=== PATIENT | female | born 1930 | race African-American/Black ===

== ENCOUNTER 2017-04-08 19:49 | Inpatient (IN) | payer MEDICARE ==
[~2017-04-08] VITALS: Ht 165.1 cm; Wt 78.0 kg
[~2017-04-08 19:49] MED LIST: AMIO200T PO; AMLO10TA4 PO; BRIM15DR2 EACHEYE; DILT180C54 PO; FOLI-43 PO; FOLI-68 PO; FURO80TA3 PO; GABA300S PO; HYDR-3162 PO; HYDR-3927 PO; HYDR-4135 PO; LATA2.5D2 EACHEYE; NPH,100V SQ; ONDA4TAB51 PO; PANT40TA4 PO; POLY17PO3 PO; POTA20TA82 PO; PRAV40TA58 PO; SERT25TA74 PO; ZOLP5TAB2 PO
[2017-04-08] MEDS ORDERED: ONDANSETRON HCL 4MG/2ML VIAL IV STA (21:50)
[2017-04-08] MEDS ORDERED: SODIUM CHLORIDE 0.9% 1,000 ML IV ONE (21:50)
[2017-04-08] MEDS ORDERED: ACETAMINOPHEN 325MG TABLET PO STA (21:50)
[2017-04-08] MEDS ORDERED: PIPERACILLIN/TAZ 3.375G PREMIX 50 ML IV ONE (22:00)
[2017-04-08] MEDS ORDERED: VANCOMYCIN 1 G PREMIX 200 ML IV ONE (22:00)
[2017-04-08 23:12] LABS: HEMATOCRIT. 21.7 % (36.0-48.0); HEMOGLOBIN. 7.1 g/dL (12.0-16.0); MEAN CORPUSCULAR HEMOGLOBIN 27.2 pg (28.0-32.0); MEAN CORPUSCULAR VOLUME 83.5 fL (81.0-99.0); MEAN PLATELET VOLUME 7.2 fl (7.4-10.4); PLATELET 229 x1000/uL (130-400); RED CELL DISTRIBUTION WIDTH 14.8 % (11.6-14.6)
[2017-04-08 23:16] LABS: CHLORIDE 114 mEq/L (98-107)
[2017-04-08 23:18] LABS: INR 1.1; PROTHROMBIN TIME 11.9 sec (9.4-11.6)
[2017-04-08 23:24] LABS: CARBON DIOXIDE 22 mEq/L (21-32)
[2017-04-08 23:29] LABS: TROPONIN I < 0.02 ng/mL (0.00-0.04)
[2017-04-09] VITALS (9 sets, daily range): BP systolic 111–191; BP diastolic 54–91
[2017-04-09 02:14] LABS: PLATELET ESTIMATE NORMAL
[2017-04-09] MEDS ORDERED: ONDANSETRON HCL 4MG/2ML VIAL IV PRN (09:45)
[2017-04-09] MEDS ORDERED: CLONIDINE 0.1MG TABLET PO PRN (09:45)
[2017-04-09] MEDS ORDERED: ACETAMINOPHEN 325MG TABLET PO PRN (09:45)
[2017-04-09] MEDS ORDERED: PIPERACILLIN/TAZ 3.375G PREMIX 50 ML IV SCH (09:45)
[2017-04-09] MEDS ORDERED: DEXTROSE 50% WATER 50ML SYRINGE IV PRN (10:45)
[2017-04-09] MEDS: SODIUM CHLORIDE 0.9% 1,000 ML IV SCH ×2 (11:46→22:42)
[2017-04-09] MEDS: PIPERACILLIN/TAZ 2.25G PREMIX 50 ML IV SCH ×3 (11:47→22:41)
[2017-04-09] MEDS ORDERED: HYDROCODONE/ACETAMINOPHEN 5/325MG TABLET PO SCH (12:00)
[2017-04-09] MEDS ORDERED: ONDANSETRON 4MG ODT PO PRN (12:00)
[2017-04-09] MEDS ORDERED: FUROSEMIDE 80MG TABLET PO SCH (12:00)
[2017-04-09] MEDS ORDERED: DILTIAZEM HCL 180MG CAPSULE CD 24HR PO SCH (12:00)
[2017-04-09] MEDS ORDERED: GABAPENTIN SOLN 50MG/1ML UDC PO SCH (12:00)
[2017-04-09] MEDS: SERTRALINE HCL 25MG TABLET PO SCH (12:51)
[2017-04-09] MEDS: HYDRALAZINE HCL 50MG TABLET PO SCH ×2 (12:52→21:00)
[2017-04-09] MEDS: FAMOTIDINE 20MG TABLET PO SCH (12:52)
[2017-04-09] MEDS: FOLIC ACID 1MG TABLET PO SCH (12:52)
[2017-04-09] MEDS: BLOOD SUGAR DIAGNOSTIC STRIP TEST SCH ×3 (12:53→21:41)
[2017-04-09] MEDS: AMIODARONE HCL 200 MG TABLET PO SCH (12:53)
[2017-04-09] MEDS: INSULIN LISPRO 100 UNITS/ML SUBCUT SCH ×3 (12:59→21:00)
[2017-04-09] MEDS ORDERED: FUROSEMIDE 40MG/4ML VIAL IVP NR (14:00)
[2017-04-09] MEDS: DILTIAZEM HCL 60MG TABLET PO SCH ×2 (14:00→22:41)
[2017-04-09] MEDS: GABAPENTIN 300MG CAPSULE PO SCH (17:46)
[2017-04-09] MEDS ORDERED: ZOLPIDEM TARTRATE 5MG TABLET PO PRN (21:00)
[2017-04-09] MEDS: LATANOPROST 0.005% OPHTH DROPS 2.5ML EACHEYE SCH (21:40)
[2017-04-10] VITALS (13 sets, daily range): BP systolic 97–163; BP diastolic 41–76
[2017-04-10] MEDS ORDERED: VANCOMYCIN 750 MG PREMIX 150 ML IV SCH
[2017-04-10] MEDS: HYDROCODONE/ACETAMINOPHEN 5/325MG TABLET PO PRN (00:44)
[2017-04-10] MEDS: PIPERACILLIN/TAZ 2.25G PREMIX 50 ML IV SCH ×4 (05:33→23:11)
[2017-04-10] MEDS: DILTIAZEM HCL 60MG TABLET PO SCH ×3 (06:00→22:00)
[2017-04-10] MEDS: INSULIN LISPRO 100 UNITS/ML SUBCUT SCH ×4 (07:48→21:00)
[2017-04-10] MEDS: BLOOD SUGAR DIAGNOSTIC STRIP TEST SCH ×4 (07:48→21:16)
[2017-04-10] MEDS ORDERED: ASPIRIN 81MG EC TABLET PO SCH (09:00)
[2017-04-10] MEDS: FOLIC ACID 1MG TABLET PO SCH (09:29)
[2017-04-10] MEDS: HYDRALAZINE HCL 50MG TABLET PO SCH ×2 (09:30→21:00)
[2017-04-10] MEDS: SERTRALINE HCL 25MG TABLET PO SCH (09:30)
[2017-04-10] MEDS: FAMOTIDINE 20MG TABLET PO SCH (09:30)
[2017-04-10] MEDS: POTASSIUM CHLORIDE 20MEQ TABLET SR PO SCH (09:30)
[2017-04-10] MEDS: GABAPENTIN 300MG CAPSULE PO SCH ×2 (09:30→16:11)
[2017-04-10] MEDS: FUROSEMIDE 40MG TABLET PO SCH (09:30)
[2017-04-10] MEDS: AMIODARONE HCL 200 MG TABLET PO SCH (09:35)
[2017-04-10 10:44] LABS: HEMATOCRIT. 31.9 % (36.0-48.0); HEMOGLOBIN. 10.5 g/dL (12.0-16.0); MEAN CORPUSCULAR HEMOGLOBIN 25.9 pg (28.0-32.0); MEAN CORPUSCULAR VOLUME 78.7 fL (81.0-99.0); MEAN PLATELET VOLUME 7.3 fl (7.4-10.4); PLATELET 258 x1000/uL (130-400); RED BLOOD CELL COUNT 4.05 mill/uL (4.2-5.4); RED CELL DISTRIBUTION WIDTH 17.9 % (11.6-14.6)
[2017-04-10 11:30] LABS: CARBON DIOXIDE 25 mEq/L (21-32); CHLORIDE 108 mEq/L (98-107); HDL CHOLESTEROL 42 mg/dL (40-59); LDL CHOLESTEROL 113 mg/dL (5-100)
[2017-04-10] MEDS: SODIUM CHLORIDE 0.9% 1,000 ML IV SCH ×2 (12:12→13:09)
[2017-04-10 14:15] LABS: PLATELET ESTIMATE NORMAL
[2017-04-10] MEDS: LATANOPROST 0.005% OPHTH DROPS 2.5ML EACHEYE SCH (21:19)
[2017-04-11] VITALS: BP 138/49
[2017-04-11] MEDS: PIPERACILLIN/TAZ 2.25G PREMIX 50 ML IV SCH ×4 (05:27→23:06)
[2017-04-11] MEDS: SODIUM CHLORIDE 0.9% 1,000 ML IV SCH (05:28)
[2017-04-11] MEDS ORDERED: VANCOMYCIN 1 G PREMIX 200 ML IV SCH (06:00)
[2017-04-11] MEDS: DILTIAZEM HCL 60MG TABLET PO SCH (06:31)
[2017-04-11 07:03] LABS: EOSINOPHILS % 3.1 % (0.0-5.0); HEMATOCRIT. 32.1 % (36.0-48.0); HEMOGLOBIN. 10.7 g/dL (12.0-16.0); LYMPHOCYTES % 21.2 % (20.0-50.0); MEAN CORPUSCULAR VOLUME 78.2 fL (81.0-99.0); MEAN PLATELET VOLUME 7.3 fl (7.4-10.4); MONOCYTES % 13.7 % (2.0-8.0); PLATELET 269 x1000/uL (130-400); RED CELL DISTRIBUTION WIDTH 17.3 % (11.6-14.6)
[2017-04-11] MEDS: BLOOD SUGAR DIAGNOSTIC STRIP TEST SCH ×4 (07:40→21:00)
[2017-04-11 08:00] VITALS: BP 154/64
[2017-04-11] MEDS: INSULIN LISPRO 100 UNITS/ML SUBCUT SCH ×4 (08:10→21:00)
[2017-04-11] MEDS: HYDRALAZINE HCL 50MG TABLET PO SCH ×2 (09:39→21:32)
[2017-04-11] MEDS: FUROSEMIDE 40MG TABLET PO SCH (09:39)
[2017-04-11] MEDS: FOLIC ACID 1MG TABLET PO SCH (09:40)
[2017-04-11] MEDS: FAMOTIDINE 20MG TABLET PO SCH (09:40)
[2017-04-11] MEDS: POTASSIUM CHLORIDE 20MEQ TABLET SR PO SCH (09:40)
[2017-04-11] MEDS: SERTRALINE HCL 25MG TABLET PO SCH (09:42)
[2017-04-11] MEDS: AMIODARONE HCL 200 MG TABLET PO SCH (09:42)
[2017-04-11] MEDS: GABAPENTIN 300MG CAPSULE PO SCH ×2 (09:42→17:32)
[2017-04-11 12:00] VITALS: BP 162/61
[2017-04-11 16:00] VITALS: BP 158/60
[2017-04-11] MEDS: DILTIAZEM HCL 30MG TABLET PO SCH ×3 (17:17→23:25)
[2017-04-11 19:49] VITALS: BP 154/58
[2017-04-11] MEDS: HYDROCODONE/ACETAMINOPHEN 5/325MG TABLET PO PRN (19:52)
[2017-04-11] MEDS: LATANOPROST 0.005% OPHTH DROPS 2.5ML EACHEYE SCH (21:31)
[2017-04-12] VITALS: BP 155/50
[2017-04-12 04:00] VITALS: BP 132/50
[2017-04-12] MEDS: SODIUM CHLORIDE 0.9% 1,000 ML IV SCH ×2 (05:38→12:53)
[2017-04-12] MEDS: PIPERACILLIN/TAZ 2.25G PREMIX 50 ML IV SCH ×4 (05:39→23:06)
[2017-04-12] MEDS: DILTIAZEM HCL 30MG TABLET PO SCH ×5 (05:39→23:15)
[2017-04-12] MEDS: BLOOD SUGAR DIAGNOSTIC STRIP TEST SCH ×4 (06:45→20:36)
[2017-04-12 06:46] LABS: BASOPHILS % 0.6 % (0.0-2.0); EOSINOPHILS % 2.5 % (0.0-5.0); HEMATOCRIT. 32.3 % (36.0-48.0); HEMOGLOBIN. 10.6 g/dL (12.0-16.0); LYMPHOCYTES % 22.6 % (20.0-50.0); MEAN CORPUSCULAR HEMOGLOBIN 25.8 pg (28.0-32.0); MEAN CORPUSCULAR VOLUME 78.6 fL (81.0-99.0); MEAN PLATELET VOLUME 7.2 fl (7.4-10.4); MONOCYTES % 11.6 % (2.0-8.0); NEUTROPHILS % 62.7 % (40.0-76.0); PLATELET 287 x1000/uL (130-400); RED BLOOD CELL COUNT 4.11 mill/uL (4.2-5.4); RED CELL DISTRIBUTION WIDTH 17.1 % (11.6-14.6)
[2017-04-12] MEDS: HYDRALAZINE HCL 50MG TABLET PO SCH ×2 (08:06→20:27)
[2017-04-12] MEDS: INSULIN LISPRO 100 UNITS/ML SUBCUT SCH ×4 (08:06→20:38)
[2017-04-12] MEDS: FOLIC ACID 1MG TABLET PO SCH (08:06)
[2017-04-12] MEDS: POTASSIUM CHLORIDE 20MEQ TABLET SR PO SCH (08:06)
[2017-04-12] MEDS: FAMOTIDINE 20MG TABLET PO SCH (08:07)
[2017-04-12] MEDS: FUROSEMIDE 40MG TABLET PO SCH (08:07)
[2017-04-12] MEDS: GABAPENTIN 300MG CAPSULE PO SCH ×2 (08:07→17:19)
[2017-04-12] MEDS: AMIODARONE HCL 200 MG TABLET PO SCH (08:07)
[2017-04-12] MEDS: SERTRALINE HCL 25MG TABLET PO SCH (08:07)
[2017-04-12 09:00] VITALS: BP 159/81
[2017-04-12] MEDS ORDERED: MIDAZOLAM HCL 2 MG/2 ML VIAL ONE (10:04)
[2017-04-12] MEDS ORDERED: IODIXANOL 320MG/ML 100 ML BOTTLE IV ONE (10:06)
[2017-04-12] MEDS ORDERED: FENTANYL CITRATE/PF 50MCG/ML 2ML VIAL ONE (10:06)
[2017-04-12] MEDS ORDERED: LIDOCAINE HCL 1% 20ML VIAL (Pyxis) INJ ONE (10:07)
[2017-04-12] MEDS ORDERED: ATROPINE SULFATE 1MG/10ML SYR IV PRN (11:15)
[2017-04-12 12:00] VITALS: BP 156/72
[2017-04-12] MEDS: VANCOMYCIN 1 G PREMIX 200 ML IV SCH (13:57)
[2017-04-12 16:00] VITALS: BP 166/68
[2017-04-12 20:00] VITALS: BP 186/56
[2017-04-12] MEDS: LATANOPROST 0.005% OPHTH DROPS 2.5ML EACHEYE SCH (20:27)
[2017-04-13] VITALS: BP 139/51
[2017-04-13 04:00] VITALS: BP 123/45
[2017-04-13] MEDS: PIPERACILLIN/TAZ 2.25G PREMIX 50 ML IV SCH (04:33)
[2017-04-13] MEDS: VANCOMYCIN 1 G PREMIX 200 ML IV SCH (05:26)
[2017-04-13] MEDS: DILTIAZEM HCL 30MG TABLET PO SCH ×2 (05:26→13:02)
[2017-04-13] MEDS: BLOOD SUGAR DIAGNOSTIC STRIP TEST SCH ×2 (06:50→13:02)
[2017-04-13 08:00] VITALS: BP 141/64
[2017-04-13] MEDS: INSULIN LISPRO 100 UNITS/ML SUBCUT SCH ×2 (08:10→13:02)
[2017-04-13] MEDS: POTASSIUM CHLORIDE 20MEQ TABLET SR PO SCH (08:49)
[2017-04-13] MEDS: FOLIC ACID 1MG TABLET PO SCH (08:49)
[2017-04-13] MEDS: FAMOTIDINE 20MG TABLET PO SCH (08:49)
[2017-04-13] MEDS: HYDRALAZINE HCL 50MG TABLET PO SCH (08:49)
[2017-04-13] MEDS: FUROSEMIDE 40MG TABLET PO SCH (08:49)
[2017-04-13] MEDS: GABAPENTIN 300MG CAPSULE PO SCH (08:51)
[2017-04-13] MEDS: SERTRALINE HCL 25MG TABLET PO SCH (08:51)
[2017-04-13] MEDS: AMIODARONE HCL 200 MG TABLET PO SCH (08:52)
[2017-04-13] MEDS: SODIUM CHLORIDE 0.9% 1,000 ML IV SCH (08:55)
[2017-04-13 09:42] LABS: BASOPHILS % 0.8 % (0.0-2.0); EOSINOPHILS % 1.9 % (0.0-5.0); HEMATOCRIT. 32.2 % (36.0-48.0); HEMOGLOBIN. 10.5 g/dL (12.0-16.0); LYMPHOCYTES % 22.5 % (20.0-50.0); MEAN CORPUSCULAR VOLUME 79.6 fL (81.0-99.0); MEAN PLATELET VOLUME 7.1 fl (7.4-10.4); MONOCYTES % 10.5 % (2.0-8.0); NEUTROPHILS % 64.3 % (40.0-76.0); PLATELET 285 x1000/uL (130-400); RED BLOOD CELL COUNT 4.04 mill/uL (4.2-5.4); RED CELL DISTRIBUTION WIDTH 17.1 % (11.6-14.6)
[2017-04-13 12:00] VITALS: BP 145/85
[2017-04-13 13:38] VITALS: BP 145/85
[2017-04-13 16:00] VITALS: BP 160/52
== END 2017-04-13 16:40 | disposition home health service (06) | DRG 602 ==
LOC: ER 19:49 → EDBEDREQ 04-09 00:25 → EDBEDREQSVC 04-09 00:27 → ENRESERV 04-09 03:55 → 7WST 04-09 03:55
PROVIDERS: ADMIT Hospitalist; ATTEND Hospitalist
PROC: 30233N1 Transfusion of Nonautologous Red Blood Cells into Peripheral Vein, Percutaneous Approach (ICD-10-PCS; 2017-04-09)
PROC: B41G1ZZ Fluoroscopy of Left Lower Extremity Arteries using Low Osmolar Contrast (ICD-10-PCS; principal; 2017-04-12)
DX: L03.115 Cellulitis of right lower limb (principal); E43 Unspecified severe protein-calorie malnutrition; L89.151 Pressure ulcer of sacral region, stage 1; N17.9 Acute kidney failure, unspecified; I13.0 Hypertensive heart and chronic kidney disease with heart failure and stage 1 through stage 4 chronic kidney disease, or unspecified chronic kidney disease; E11.22 Type 2 diabetes mellitus with diabetic chronic kidney disease; I48.0 Paroxysmal atrial fibrillation; I50.9 Heart failure, unspecified; L97.419 Non-pressure chronic ulcer of right heel and midfoot with unspecified severity; E11.621 Type 2 diabetes mellitus with foot ulcer; L97.509 Non-pressure chronic ulcer of other part of unspecified foot with unspecified severity; D64.9 Anemia, unspecified; E03.9 Hypothyroidism, unspecified; H40.9 Unspecified glaucoma; I25.10 Atherosclerotic heart disease of native coronary artery without angina pectoris; I25.5 Ischemic cardiomyopathy; I44.0 Atrioventricular block, first degree; I73.9 Peripheral vascular disease, unspecified; I99.8 Other disorder of circulatory system; M48.00 Spinal stenosis, site unspecified; N18.9 Chronic kidney disease, unspecified; R62.7 Adult failure to thrive; Z96.659 Presence of unspecified artificial knee joint; Z82.49 Family history of ischemic heart disease and other diseases of the circulatory system; Z83.3 Family history of diabetes mellitus; Z88.5 Allergy status to narcotic agent; Z90.710 Acquired absence of both cervix and uterus; Z95.1 Presence of aortocoronary bypass graft; Z95.5 Presence of coronary angioplasty implant and graft; Z68.28 Body mass index [BMI] 28.0-28.9, adult; Z88.6 Allergy status to analgesic agent; Z88.2 Allergy status to sulfonamides; Z90.49 Acquired absence of other specified parts of digestive tract
CPT/HCPCS: 36246; 36415; 36430; 71010; 73620; 75710; 80048; 80053; 80061; 80202; 82962; 83605; 83880; 84484; 85025; 85610; 86850; 86900; 86920; 87040; 93005; 93923; 93970; 96374; 99285; A6261; C1760; C1769; C1893; J1644; J1815; J1940; J2250; J2405; J2543; J3010; J3370; J3490; J7030; J7050; P9016; Q9967

== ENCOUNTER 2017-08-02 14:19 | Inpatient (IN) | payer MEDICARE ==
[~2017-08-02] VITALS: Ht 165.1 cm; Wt 75.5 kg
[~2017-08-02 14:19] MED LIST changes: -HYDR-3162 PO
[2017-08-02] MEDS ORDERED: ASPIRIN 81MG TABLET PO STA (15:18)
[2017-08-02] MEDS ORDERED: METHYLPREDNISOLONE SOD SUCC 125 MG/2 ML VIAL IV STA (15:18)
[2017-08-02] MEDS ORDERED: ALBUTEROL (0.083%) 2.5MG/3ML NEB HHN STA (15:18)
[2017-08-02] MEDS ORDERED: IPRATROPIUM BROMIDE (0.02%) 0.5MG/2.5ML NEB HHN STA (15:18)
[2017-08-02] MEDS ORDERED: SODIUM CHLORIDE 0.9% 1000ML BAG (SEPSIS BOLUS) IV ONE (15:30)
[2017-08-02] MEDS ORDERED: LEVOFLOXACIN 750MG PREMIX 150 ML IV ONE (15:30)
[2017-08-02 16:20] LABS: BASOPHILS % 0.5 % (0.0-2.0); EOSINOPHILS % 0.1 % (0.0-5.0); HEMATOCRIT. 35.1 % (36.0-48.0); HEMOGLOBIN. 11.6 g/dL (12.0-16.0); LYMPHOCYTES % 20.5 % (20.0-50.0); MEAN CORPUSCULAR HEMOGLOBIN 27.7 pg (28.0-32.0); MEAN CORPUSCULAR VOLUME 84.2 fL (81.0-99.0); MONOCYTES % 8.6 % (2.0-8.0); NEUTROPHILS % 70.3 % (40.0-76.0); PLATELET 172 x1000/uL (130-400); RED BLOOD CELL COUNT 4.17 mill/uL (4.2-5.4); RED CELL DISTRIBUTION WIDTH 13.9 % (11.6-14.6)
[2017-08-02 16:29] LABS: CHLORIDE 107 mEq/L (98-107)
[2017-08-02 16:36] LABS: CARBON DIOXIDE 24 mEq/L (21-32)
[2017-08-02 16:40] LABS: TROPONIN I < 0.02 ng/mL (0.00-0.04)
[2017-08-02 16:44] LABS: PARTIAL THROMBOPLASTIN TIME 28.8 sec (23.4-31.0); PROTHROMBIN TIME 10.1 sec (9.4-11.6)
[2017-08-02] MEDS ORDERED: NITROGLYCERIN OINT 1GM/INCH UDPKT TD STA (17:35)
[2017-08-02] MEDS ORDERED: FUROSEMIDE 40MG/4ML VIAL IV STA (17:35)
[2017-08-02] MEDS ORDERED: CLONIDINE 0.2MG TABLET PO ONE (17:45)
[2017-08-02] MEDS ORDERED: OSELTAMIVIR 75MG CAPSULE PO ONE (18:30)
[2017-08-02] MEDS ORDERED: ENOXAPARIN 40MG/0.4ML SYR SUBCUT SCH (19:00)
[2017-08-02] MEDS ORDERED: CLONIDINE 0.1MG TABLET PO PRN (21:42)
[2017-08-02] MEDS ORDERED: ONDANSETRON HCL 4MG/2ML VIAL IV PRN (21:44)
[2017-08-02] MEDS ORDERED: HYDROCODONE/ACETAMINOPHEN 5/325MG TABLET PO PRN (21:44)
[2017-08-02] MEDS ORDERED: MAGNESIUM/ALUMINUM HYDROXIDE/SIMETHICONE 30ML UDC PO PRN (21:45)
[2017-08-02] MEDS ORDERED: DIPHENHYDRAMINE 50MG/ML VIAL IV PRN (21:45)
[2017-08-02] MEDS ORDERED: GUAIFENESIN 200MG/10ML SUGAR FREE UDC PO PRN (21:46)
[2017-08-02] MEDS ORDERED: LORAZEPAM 0.5MG TABLET PO PRN (21:46)
[2017-08-02] MEDS ORDERED: DOCUSATE SODIUM 100MG CAPSULE PO PRN (21:46)
[2017-08-02] MEDS ORDERED: IPRATROPIUM/ALBUTEROL 0.5-3(2.5)MG/3ML NEB INH PRN (21:46)
[2017-08-02 22:30] VITALS: BP 158/63
[2017-08-02] MEDS ORDERED: NA PHOS,M-B/NA PHOS,DI-BA ENEMA 118ML PR PRN (23:00)
[2017-08-02 23:35] LABS: CARBON DIOXIDE 19 mEq/L (21-32); CHLORIDE 105 mEq/L (98-107); TROPONIN I < 0.02 ng/mL (0.00-0.04)
[2017-08-03] VITALS: BP 184/78
[2017-08-03] MEDS: SODIUM CHLORIDE 0.45% 1,000 ML IV SCH ×2 (00:41→17:08)
[2017-08-03 04:00] VITALS: BP 160/63
[2017-08-03] MEDS ORDERED: DULO30CA2 PO (06:08)
[2017-08-03] MEDS ORDERED: TAM75 PO (06:08)
[2017-08-03] MEDS ORDERED: DEXTROSE 50% WATER 50ML SYRINGE IV PRN (07:45)
[2017-08-03 07:53] VITALS: BP 146/79
[2017-08-03 07:58] LABS: BASOPHILS % 0.4 % (0.0-2.0); HEMOGLOBIN. 10.4 g/dL (12.0-16.0); LYMPHOCYTES % 20.7 % (20.0-50.0); MEAN CORPUSCULAR HEMOGLOBIN 27.7 pg (28.0-32.0); MEAN CORPUSCULAR VOLUME 82.5 fL (81.0-99.0); MEAN PLATELET VOLUME 8.2 fl (7.4-10.4); MONOCYTES % 3.2 % (2.0-8.0); NEUTROPHILS % 75.7 % (40.0-76.0); PLATELET 184 x1000/uL (130-400); RED BLOOD CELL COUNT 3.76 mill/uL (4.2-5.4); RED CELL DISTRIBUTION WIDTH 13.6 % (11.6-14.6)
[2017-08-03] MEDS ORDERED: ONDANSETRON 4MG ODT PO PRN (08:15)
[2017-08-03] MEDS: AMIODARONE HCL 200 MG TABLET PO SCH (08:20)
[2017-08-03 08:27] LABS: CHLORIDE 105 mEq/L (98-107)
[2017-08-03 08:52] LABS: CARBON DIOXIDE 19 mEq/L (21-32); HDL CHOLESTEROL 43 mg/dL (40-59); LDL CHOLESTEROL 86 mg/dL (5-100); T4 FREE 1.31 ng/dL (0.76-1.46); TROPONIN I < 0.02 ng/mL (0.00-0.04)
[2017-08-03] MEDS: INSULIN LISPRO 100 UNITS/ML SUBCUT SCH ×4 (08:53→21:00)
[2017-08-03] MEDS: POLYETHYLENE GLYCOL 3350 (17GM) 1 DOSE PACK PO SCH (08:54)
[2017-08-03] MEDS: ENOXAPARIN 30MG/0.3ML SYR SUBCUT SCH (08:54)
[2017-08-03] MEDS: GABAPENTIN 300MG CAPSULE PO SCH ×2 (08:55→17:08)
[2017-08-03] MEDS: SERTRALINE HCL 25MG TABLET PO SCH (08:55)
[2017-08-03] MEDS: ASPIRIN 81MG EC TABLET PO SCH (08:55)
[2017-08-03] MEDS: FOLIC ACID 1MG TABLET PO SCH (08:55)
[2017-08-03] MEDS: AMLODIPINE 10MG TABLET PO SCH (08:55)
[2017-08-03] MEDS: FUROSEMIDE 40MG TABLET PO SCH (08:55)
[2017-08-03] MEDS: HYDRALAZINE HCL 50MG TABLET PO SCH ×2 (08:55→21:15)
[2017-08-03] MEDS: DULOXETINE HCL 30MG DR CAPSULE PO SCH (08:55)
[2017-08-03] MEDS ORDERED: POTASSIUM CHLORIDE 20MEQ TABLET SR PO SCH (09:00)
[2017-08-03] MEDS ORDERED: PANTOPRAZOLE 40MG DR TABLET PO PRN (09:00)
[2017-08-03] MEDS ORDERED: MEDICATION NOT ON FORMULARY EA (Pravastatin Sodium 40 MG) PO SCH (09:00)
[2017-08-03] MEDS ORDERED: DILTIAZEM HCL 180MG CAPSULE CD 24HR PO SCH (09:00)
[2017-08-03 11:56] VITALS: BP 147/68
[2017-08-03] MEDS: BLOOD SUGAR DIAGNOSTIC STRIP TEST SCH ×3 (12:09→21:16)
[2017-08-03 16:00] VITALS: BP 156/74
[2017-08-03] MEDS ORDERED: OSELTAMIVIR 75MG CAPSULE PO SCH (17:00)
[2017-08-03] MEDS: OSELTAMIVIR 30MG CAPSULE PO SCH (18:05)
[2017-08-03 19:51] VITALS: BP 129/49
[2017-08-03] MEDS ORDERED: ATORVASTATIN CALCIUM 10MG TABLET PO SCH (21:00)
[2017-08-03] MEDS ORDERED: ZOLPIDEM TARTRATE 5MG TABLET PO PRN (21:00)
[2017-08-03] MEDS ORDERED: LATANOPROST 0.005% OPHTH DROPS 2.5ML EACHEYE SCH (21:00)
[2017-08-04 00:45] VITALS: BP 141/56
[2017-08-04] MEDS: ACETAMINOPHEN 325MG TABLET PO PRN ×2 (04:22→10:41)
[2017-08-04 05:25] VITALS: BP 130/54
[2017-08-04] MEDS: INSULIN LISPRO 100 UNITS/ML SUBCUT SCH ×2 (06:25→12:23)
[2017-08-04] MEDS: BLOOD SUGAR DIAGNOSTIC STRIP TEST SCH ×2 (06:25→12:23)
[2017-08-04 07:00] LABS: BASOPHILS % 0.2 % (0.0-2.0); HEMATOCRIT. 27.4 % (36.0-48.0); HEMOGLOBIN. 9.3 g/dL (12.0-16.0); LYMPHOCYTES % 21.6 % (20.0-50.0); MEAN CORPUSCULAR HEMOGLOBIN 27.8 pg (28.0-32.0); MEAN CORPUSCULAR VOLUME 81.8 fL (81.0-99.0); MEAN PLATELET VOLUME 8.2 fl (7.4-10.4); MONOCYTES % 11.5 % (2.0-8.0); NEUTROPHILS % 66.7 % (40.0-76.0); PLATELET 206 x1000/uL (130-400); RED BLOOD CELL COUNT 3.35 mill/uL (4.2-5.4); RED CELL DISTRIBUTION WIDTH 13.9 % (11.6-14.6)
[2017-08-04 07:27] LABS: CARBON DIOXIDE 20 mEq/L (21-32); CHLORIDE 105 mEq/L (98-107)
[2017-08-04 07:38] LABS: TROPONIN I < 0.02 ng/mL (0.00-0.04)
[2017-08-04 08:00] VITALS: BP 122/46
[2017-08-04] MEDS ORDERED: FOLIC ACID/VITAMIN B COMP W-C TABLET PO SCH (09:00)
[2017-08-04] MEDS ORDERED: ASCORBIC ACID 250 MG TABLET PO SCH (09:00)
[2017-08-04] MEDS ORDERED: ZINC SULFATE 220 MG ( 50 ) CAPSULE PO SCH (09:00)
[2017-08-04] MEDS: AMIODARONE HCL 200 MG TABLET PO SCH (09:00)
[2017-08-04] MEDS: DULOXETINE HCL 30MG DR CAPSULE PO SCH (09:04)
[2017-08-04] MEDS: ASPIRIN 81MG EC TABLET PO SCH (09:05)
[2017-08-04] MEDS: POLYETHYLENE GLYCOL 3350 (17GM) 1 DOSE PACK PO SCH (09:05)
[2017-08-04] MEDS: ENOXAPARIN 30MG/0.3ML SYR SUBCUT SCH (09:05)
[2017-08-04] MEDS: FUROSEMIDE 40MG TABLET PO SCH (09:06)
[2017-08-04] MEDS: AMLODIPINE 10MG TABLET PO SCH (09:06)
[2017-08-04] MEDS: FOLIC ACID 1MG TABLET PO SCH (09:06)
[2017-08-04] MEDS: HYDRALAZINE HCL 50MG TABLET PO SCH (09:06)
[2017-08-04] MEDS: OSELTAMIVIR 30MG CAPSULE PO SCH (09:07)
[2017-08-04] MEDS: SERTRALINE HCL 25MG TABLET PO SCH (09:07)
[2017-08-04] MEDS: GABAPENTIN 300MG CAPSULE PO SCH (09:11)
[2017-08-04 09:18] LABS: VITAMIN B12 SERUM > 2000.0 pg/mL (211-911)
[2017-08-04 12:00] VITALS: BP 157/63
[2017-08-04 12:26] VITALS: BP 157/63
== END 2017-08-04 13:30 | disposition home or self-care (01) | DRG 73 ==
LOC: ER 14:19 → 6WST 18:30 → EDBEDREQ 18:35 → ENRESERV 19:43
PROVIDERS: ADMIT Internal Medicine; ATTEND Internal Medicine
DX: G90.8 Other disorders of autonomic nervous system (principal); G93.41 Metabolic encephalopathy; E46 Unspecified protein-calorie malnutrition; E11.51 Type 2 diabetes mellitus with diabetic peripheral angiopathy without gangrene; E11.40 Type 2 diabetes mellitus with diabetic neuropathy, unspecified; D64.9 Anemia, unspecified; I50.9 Heart failure, unspecified; I11.0 Hypertensive heart disease with heart failure; I48.0 Paroxysmal atrial fibrillation; E87.5 Hyperkalemia; E03.9 Hypothyroidism, unspecified; E86.0 Dehydration; I25.10 Atherosclerotic heart disease of native coronary artery without angina pectoris; K59.09 Other constipation; M13.0 Polyarthritis, unspecified; G89.4 Chronic pain syndrome; Z86.73 Personal history of transient ischemic attack (TIA), and cerebral infarction without residual deficits; Z79.899 Other long term (current) drug therapy; Z90.13 Acquired absence of bilateral breasts and nipples; Z85.3 Personal history of malignant neoplasm of breast; Z95.1 Presence of aortocoronary bypass graft; Z95.5 Presence of coronary angioplasty implant and graft; Z88.6 Allergy status to analgesic agent; Z88.2 Allergy status to sulfonamides; Z79.4 Long term (current) use of insulin; Z68.27 Body mass index [BMI] 27.0-27.9, adult
CPT/HCPCS: 36415; 70450; 71010; 80048; 80053; 80061; 82607; 82962; 83605; 83690; 83880; 84439; 84443; 84484; 85025; 85610; 85730; 87040; 87804; 93005; 93306; 93880; 94644; 96365; 96375; 99285; J1650; J1815; J1940; J1956; J2930; J7030; J7611